=== PATIENT | male | born 1960 | race Caucasian/White ===

== ENCOUNTER 2017-06-20 17:58 | Emergency (ER) | payer MEDICARE ==
[2017-06-20 18:03] VITALS: BP 132/82
--- NOTE | 2017-06-20 18:44 | ED Physician Documentation ---
PD HPI UPPER EXT INJURY - Stated complaint Stated Complaint: GLF - HAND PX - Chief complaint Chief Complaint: Ext Problem - History obtained from History obtained from: Patient - History of Present Illness Location: Right, Finger (middle) Type of injury: Twist (his was falling and he tried to catch her, with a twisting of the middle finger. No other injury. Pain with ROM and slight swellig at PIP.) Where injury occurred: Other (beach) Timing - onset: Today Timing - details: Abrupt onset, Still present Improved by: Rest Worsened by: Moving, Palpating Associated symptoms: Swelling. No: Weakness, Numbness, Discolored Similar symptoms before: Has not had sx before Recently seen: Not recently seen Review of Systems Skin: denies: Abrasion (s), Laceration (s) Musculoskeletal: reports: Back pain (chronic), Joint pain (just in finger) Neurologic: denies: Generalized weakness, Focal weakness, Numbness PD PAST MEDICAL HISTORY - Past Medical History Past Medical History: Yes - Past Surgical History Past Surgical History: Yes General: Other - Allergies Allergies/Adverse Reactions: Allergies Allergy/AdvReac Type Severity Reaction Status Date / Time No Known Drug Allergies Allergy Verified 06/20/17 18:03 - Social History Does the pt smoke?: No Smoking Status: Never smoker Does the pt drink ETOH?: Yes Does the pt have substance abuse?: Yes Substance Use and Type: Marijuana PD ED PE NORMAL - Vitals Vital signs reviewed: Yes - General General: Alert and oriented X 3, Well developed/nourished, Other (appears in pain due to finger) - HEENT HEENT: Atraumatic - Neck Neck: Supple, no meningeal sign, No bony TTP, No adenopathy - Derm Derm: Normal color, Warm and dry - Extremities Extremities: Other (right middle finger with tenderness at PIP and MCP areas without deformity. Mild swelling. No bruising. Distal finger with normal sensation, movement and color/cap refill. ) - Neuro Neuro: Alert and oriented X 3, No motor deficit, No sensory deficit Results - Vitals Vitals: Oxygen O2 Source Room air - Rads (name of study) finger Radiology: Prelim report reviewed, EMP read contemporaneously (no fractures) PD MEDICAL DECISION MAKING - ED course Complexity details: reviewed results (no fractures; still hurts with ROM so will splint short term until better. ), considered differential, d/w patient Departure - Departure Disposition: 01 Home, Self Care Clinical Impression: Finger sprain Qualifiers: Encounter type: initial encounter Finger: middle finger Sprain of finger site: interphalangeal joint Laterality: right Qualified Code(s): S63.632A - Sprain of interphalangeal joint of right middle finger, initial encounter Condition: Stable Record reviewed to determine appropriate education?: Yes Instructions: ED Sprain Finger Follow-Up: Sandy Roper MD [Primary Care Provider] - Comments: Continue usual medications. Ibuprofen or naproxen if needed for pains. Use a finger splint if needed for comfort and progress use of the finger as able. Will likely be sore for a few days to week from the sprain. There are no fractures on x-ray. Discharge Date/Time: 06/20/17 20:16
--- NOTE | 2017-06-20 19:45 | XRAY Preliminary Report ---
Exam: XR FINGER(S) RT IMPRESSION: Normal digit radiography. [facility] SITE ID: [id number]
[2017-06-20] MEDS ORDERED: IBUPROFEN 600 MG TABLET PO STA (19:55)
--- NOTE | 2017-06-20 19:58 | XRAY Report ---
EXAM: RIGHT SECOND AND THIRD DIGIT RADIOGRAPHY EXAM DATE: 06/20/2017 07:16 PM. CLINICAL HISTORY: Fall and struck fingers of right hand. COMPARISON: None. TECHNIQUE: 3 views. FINDINGS: Bones: Normal. No fracture or bone lesion. Joints: Normal. No subluxations. Soft Tissues: Normal. No soft tissue swelling. IMPRESSION: Normal digit radiography. [facility] Referring Provider Line: [phone] SITE ID: [id number]
== END 2017-06-20 20:16 | disposition home or self-care (01) ==
LOC: ED 17:58
DX: S63.632A Sprain of interphalangeal joint of right middle finger, initial encounter (principal); X50.0XXA Overexertion from strenuous movement or load, initial encounter; Y92.832 Beach as the place of occurrence of the external cause
CPT/HCPCS: 73140; 99283; A9270

== ENCOUNTER 2017-07-09 15:05 | Outpatient (CLI) | payer MEDICARE | END 2017-07-09 15:06 | disposition home or self-care (01) | LOC: SC 15:05 | PROVIDERS: ATTEND Internal Medicine Pulmonary Disease | DX: G47.33 Obstructive sleep apnea (adult) (pediatric) (principal) | CPT/HCPCS: 99203; G0463; 99212 ==

== ENCOUNTER 2017-07-10 15:05 | Outpatient (CLI) | payer MEDICARE | END 2017-07-10 15:06 | disposition home or self-care (01) | LOC: LAB 15:05 | PROVIDERS: ATTEND Internal Medicine Rheumatology | DX: M45.9 Ankylosing spondylitis of unspecified sites in spine (principal); Z79.899 Other long term (current) drug therapy | CPT/HCPCS: 36415; 81599; 86480 ==

== ENCOUNTER 2017-08-20 09:58 | Outpatient (CLI) | payer MEDICARE ==
[2017-08-20 10:29] LABS: BASOPHILS % (AUTO) 0.5 %; EOSINOPHILS # (AUTO) 0.1 10^3/uL (0.0-0.7); EOSINOPHILS % (AUTO) 1.4 %; HGB - HEMOGLOBIN 14.4 g/dL (14.0-18.0); LYMPHOCYTES # (AUTO) 1.5 10^3/uL (1.5-3.5); LYMPHOCYTES % (AUTO) 25.6 %; MEAN CORPUSCULAR HGB CONC 33.7 g/dL (32.0-36.0); MEAN CORPUSCULAR VOLUME 89.2 fL (80.0-94.0); MEAN PLATELET VOLUME 6.9 fL (7.4-11.4); MONOCYTES # (AUTO) 0.6 10^3/uL (0.0-1.0); MONOCYTES % (AUTO) 9.8 %; NEUTROPHILS # (AUTO) 3.7 10^3/uL (1.5-6.6); NEUTROPHILS % (AUTO) 62.7 %; PLT - PLATELET COUNT 285 10^3/uL (130-450); RED BLOOD COUNT 4.79 10^6/uL (4.70-6.10); RED CELL DISTRIBUTION WIDTH 12.8 % (12.0-15.0); WHITE BLOOD COUNT 5.9 x10^3/uL (4.8-10.8)
[2017-08-20 10:54] LABS: ALBUMIN 4.5 g/dL (3.2-5.5); ALBUMIN/GLOBULIN RATIO 1.6 (1.0-2.2); ALKALINE PHOSPHATASE 47 IU/L (42-121); ALT ALANINE AMINOTRANSFERASE 18 IU/L (10-60); AST ASPARTATE AMINOTRANSFERASE 18 IU/L (10-42); BILIRUBIN,TOTAL 0.5 mg/dL (0.2-1.0); BUN - BLOOD UREA NITROGEN 14 mg/dL (6-20); CALCIUM 9.2 mg/dL (8.5-10.3); CARBON DIOXIDE - CO2 29 mmol/L (21-32); CHLORIDE 102 mmol/L (101-111); CHOLESTEROL 197 mg/dL; CREATININE 0.9 mg/dL (0.6-1.2); GFR - MDRD 86 (>89); GLUCOSE 98 mg/dL (70-100); HDL CHOLESTEROL 33 mg/dL; LDL CHOLESTEROL,CALCULATED 135 mg/dL; LDL/HDL RATIO 4.1 (<3.6); SODIUM 139 mmol/L (135-145); TOTAL PROTEIN 7.4 g/dL (6.7-8.2); VLDL CHOLESTEROL 29 mg/dL
[2017-08-20 10:59] LABS: THYROID STIMULATING HORMONE 2.11 uIU/mL (0.34-5.60)
[2017-08-20 11:05] LABS: FERRITIN 60.8 ng/mL (23.9-336.2)
[2017-08-21 13:53] LABS: HEPATITIS C ANTIBODY NON-REACTIVE (NON-REACTIVE)
== END 2017-08-20 09:59 | disposition home or self-care (01) ==
LOC: LAB 09:58
PROVIDERS: ATTEND Internal Medicine
DX: Z00.00 Encounter for general adult medical examination without abnormal findings (principal); G47.33 Obstructive sleep apnea (adult) (pediatric); M54.6 Pain in thoracic spine; M45.9 Ankylosing spondylitis of unspecified sites in spine; G25.81 Restless legs syndrome; F41.9 Anxiety disorder, unspecified; Z80.42 Family history of malignant neoplasm of prostate; Z13.6 Encounter for screening for cardiovascular disorders; Z12.5 Encounter for screening for malignant neoplasm of prostate; Z79.899 Other long term (current) drug therapy
CPT/HCPCS: 36415; 80053; 80061; 82728; 84443; 85025; 86803; G0103; 83721; 84153

== ENCOUNTER 2017-10-23 11:21 | Outpatient (CLI) | payer MEDICARE ==
--- NOTE | 2017-10-23 16:29 | XRAY Report ---
Procedure Date: 10/23/2017 Accession Number: [id number] / [id number] Procedure: XR - Clavicle LT CPT Code: FULL RESULT: EXAM: Clavicle LT DATE: 10/23/2017 12:10 PM CLINICAL HISTORY: PAIN TECHNIQUE: 2 views COMPARISON: None FINDINGS: Small amount of degenerative change at the left acromioclavicular joint. Minimal calcification at the insertion of the rotator cuff onto the greater tuberosity. The left clavicle is intact without evidence of fracture, bone destruction, periosteal reaction or other finding. IMPRESSION: Negative left clavicle. Degenerative change left shoulder.
== END 2017-10-23 11:22 | disposition home or self-care (01) ==
LOC: DI 11:21
PROVIDERS: ATTEND Internal Medicine
DX: M19.012 Primary osteoarthritis, left shoulder (principal)

== ENCOUNTER 2017-11-02 20:48 | Outpatient (CLI) | payer MEDICARE | END 2017-11-02 20:49 | disposition home or self-care (01) | LOC: SC 20:48 | PROVIDERS: ATTEND Internal Medicine Pulmonary Disease | DX: G47.61 Periodic limb movement disorder (principal) | CPT/HCPCS: 95810 ==

== ENCOUNTER 2017-12-03 15:06 | Outpatient (CLI) | payer MEDICARE | END 2017-12-03 15:07 | disposition home or self-care (01) | LOC: SC 15:06 | PROVIDERS: ATTEND Nurse Practitioner Family | DX: G47.00 Insomnia, unspecified (principal); G47.61 Periodic limb movement disorder | CPT/HCPCS: 99214; G0463; 99212 ==

== ENCOUNTER 2019-03-09 16:17 | Emergency (ER) | payer MEDICARE ==
[2019-03-09 16:24] VITALS: BP 165/89
--- NOTE | 2019-03-09 16:53 | ED Physician Documentation ---
PD HPI LOWER EXT INJURY - Stated complaint Stated Complaint: RT PINKY TOE PX - Chief complaint Chief Complaint: Ext Problem - History obtained from History obtained from: Patient, Family - History of Present Illness PD HPI LOW EXT INJURY LOCATION: Right, Toe (5th) Type of injury: Blunt / blow Where injury occurred: Home Timing - onset: Today Timing - duration: Minutes Timing - details: Abrupt onset, Still present Improved by: Rest, Ice, Immobilization Worsened by: Moving, Palpating Associated symptoms: Swelling. No: Weakness, Numbness Similar symptoms before: Has not had sx before Recently seen: Not recently seen - Additional information Additional information: 58-year-old male was chasing his dog and he ran toward a room that had a door open and he stubbed his toe on the inside portion of the door. He felt a snap when this happened and the toe was deformed laterally it now appears to be in correct position and is swollen. He is worried about a fracture. PD PAST MEDICAL HISTORY - Past Surgical History Past Surgical History: Yes General: Other - Present Medications Home Medications: Ambulatory Orders Medication Instructions Recorded Confirmed Baclofen 10 mg PO 03/09/19 Duloxetine HCl 30 03/09/19 HYDROcodone/ACET 10/325 [[place] 10 1 03/09/19 mg/325 mg] Naproxen 0 03/09/19 buPROPion [Wellbutrin Sr] 100 mg PO BID 03/09/19 03/09/19 - Allergies Allergies/Adverse Reactions: Allergies Allergy/AdvReac Type Severity Reaction Status Date / Time No Known Drug Allergies Allergy Verified 03/09/19 16:24 - Social History Does the pt smoke?: No Smoking Status: Never smoker Does the pt drink ETOH?: Yes Does the pt have substance abuse?: Yes Results - Vitals Vitals: Vital Signs - 24 hr 03/09/19 16:22 Temperature 37.2 C Heart Rate 76 Respiratory 22 Rate Blood Pressure 165/89 H O2 Saturation 97 Oxygen O2 Source Room air - Rads (name of study) toe R Radiology: Prelim report reviewed (Impression: Nondisplaced proximal shaft fracture of the 5th proximal phalnx.), EMP read indepedently, See rad report Departure - Departure Disposition: 01 Home, Self Care Clinical Impression: Toe fracture, right Qualifiers: Encounter type: initial encounter Toe: lesser toe Fracture type: closed Phalanx: proximal Fracture alignment: nondisplaced Qualified Code(s): S92.514A - Nondisplaced fracture of proximal phalanx of right lesser toe(s), initial encounter for closed fracture Condition: Stable Instructions: ED Fx Toe Closed Follow-Up: Sandy Roper MD [Primary Care Provider] -
--- NOTE | 2019-03-09 17:34 | XRAY Report ---
Reason: 5th toe jammed/pain Procedure Date: 03/09/2019 Accession Number: [id number] / [id number] Procedure: XR - Toe(s) RT CPT Code: Final Report FULL RESULT: EXAM: RIGHT TOE RADIOGRAPHY EXAM DATE: 03/09/2019 04:59 PM. CLINICAL HISTORY: 5th toe jammed. Pain. COMPARISON: None. TECHNIQUE: 3 views. FINDINGS: Bones: Nondisplaced proximal shaft fracture of the fifth proximal phalanx. No other traumatic or destructive bone abnormalities. Joints: Normal. No subluxations. Soft Tissues: Associated soft tissue swelling. IMPRESSION: Nondisplaced proximal shaft fracture of the fifth proximal phalanx. [facility]
== END 2019-03-09 17:44 | disposition home or self-care (01) ==
LOC: ED 16:17
DX: S92.514A Nondisplaced fracture of proximal phalanx of right lesser toe(s), initial encounter for closed fracture (principal); W22.09XA Striking against other stationary object, initial encounter; Y93.02 Activity, running; Y92.009 Unspecified place in unspecified non-institutional (private) residence as the place of occurrence of the external cause
CPT/HCPCS: 73660; 99281; 99283

== ENCOUNTER 2019-12-03 08:20 | Outpatient (CLI) | payer MEDICARE | END 2019-12-03 08:21 | disposition home or self-care (01) | LOC: COV 08:20 | PROVIDERS: ATTEND Family Medicine | DX: R05 Cough (principal); M79.10 Myalgia, unspecified site; R53.83 Other fatigue; R68.83 Chills (without fever); R09.81 Nasal congestion; Z20.828 Contact with and (suspected) exposure to other viral communicable diseases ==

== ENCOUNTER 2020-04-22 17:17 | Outpatient (CLI) | payer MEDICARE, MEDICAID | END 2020-04-22 17:18 | disposition home or self-care (01) | LOC: COV 17:17 | PROVIDERS: ATTEND Family Medicine | DX: R05 Cough (principal); Z20.828 Contact with and (suspected) exposure to other viral communicable diseases; R06.02 Shortness of breath; R53.83 Other fatigue; R68.83 Chills (without fever); J02.9 Acute pharyngitis, unspecified; R09.81 Nasal congestion ==

== ENCOUNTER 2020-05-15 03:59 | Outpatient (CLI) | payer MEDICARE, MEDICAID ==
--- OUTSIDE RECORDS SUMMARY | 2020-05-19 01:51 | EXTERNAL MEDICAL SUMMARY RPT | Continuity of Care Document ---
:1960 Demographics Phone Unavailable Preferred Language Unknown Marital Status Unknown Alevism Affiliation Unknown Race Unknown Ethnic Group Unknown Author Organization [place] Address [address] [place] [address] Phone Care Team Providers Name Role Phone Dannhauer Unavailable Unavailable Problems date description facility 2017-06-20 17:58 SPRAIN OF INTERPHALANGEAL JOINT OF i [facility] RIGHT MIDDLE FINGER, INIT 2017-06-20 17:58 UNSP INJURY OF RIGHT WRIST, HAND [facility] AND FINGER(S), INIT ENCNTR 2017-06-20 17:58 OVEREXERTION FROM STRENUOUS [facility] MOVEMENT OR LOAD, INIT 2017-06-20 17:[address] OF OCCURRENCE [facility] OF THE EXTERNAL CAUSE 2017-07-09 15:05 OBSTRUCTIVE SLEEP APNEA (ADULT) [facility] (PEDIATRIC) 2017-07-10 15:[address] 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 SHOULDER 2017-11-02 20:48 PERIODIC LIMB MOVEMENT DISORDER [facility] 2017-12-03 15:06 INSOMNIA, UNSPECIFIED [facility] dical Center 2017-12-03 15:06 PERIODIC LIMB MOVEMENT DISORDER [facility] 2019-03-09 16:17 PAIN IN RIGHT TOE(S) [facility] ical [place] 2019-03-09 16:17 NONDISP FX OF PROXIMAL PHALANX OF [facility] RIGHT LESSER TOE(S), INIT 2019-03-09 16:17 STRIKING AGAINST OTHER STATIONARY [facility] OBJECT, INITIAL ENCOUNTER 2019-03-09 16:[address] IN UNSP NON-[facility] (PRIVATE) RESIDENCE PLACE 2019-03-09 16:17 ACTIVITY, RUNNING [facility] Medic [facility] 2019-12-03 08:20 MYALGIA, UNSPECIFIED SITE [facility] 2019-12-03 08:20 COUGH [facility] Medic [facility] 2019-12-03 08:20 NASAL CONGESTION [facility] 2019-12-03 08:20 OTHER FATIGUE [facility] Medic [facility] 2019-12-03 08:20 CHILLS (WITHOUT FEVER) [facility] edical [place] 2019-12-03 08:20 CONTACT W AND EXPOSURE TO OTH [facility] VIRAL COMMUNICABLE DISEASES 2019-12-13 13:22 ANXIETY DISORDER, UNSPECIFIED [facility] 2019-12-13 13:22 OBSTRUCTIVE SLEEP APNEA (ADULT) [facility] (PEDIATRIC) 2019-12-13 13:22 RHEUMATOID ARTHRITIS, UNSPECIFIED [facility] 2019-12-13 13:22 OTHER SPONDYLOSIS, THORACIC REGION i [facility] 2019-12-13 13:22 EPIGASTRIC PAIN [facility] Medic [facility] 2019-12-13 13:22 NAUSEA [facility] 2019-12-13 13:22 ANESTHESIA OF SKIN [facility] Medic al Center 2019-12-13 13:22 OTHER PROBLEMS RELATED TO [facility] LIFESTYLE 2019-12-13 13:22 MAJOR DEPRESSIVE DISORDER, SINGLE [facility] EPISODE, UNSPECIFIED 2019-12-13 13:22 OTHER CHRONIC PAIN [facility] Medic al Center 2019-12-13 13:22 ULCER OF [facility]HAGUS [facility] BLE[facility] 2019-12-13 13:22 CONSTIPATION, UNSPECIFIED [facility] 2019-12-13 13:22 ANKYLOSING SPONDYLITIS LUMBAR [facility] REGION 2019-12-13 13:22 ADVERSE EFFECT OF NONSTEROIDAL [facility] ANTI-INFLAMMATORY DRUGS, INIT 2019-12-13 13:[address] [facility] NON-[facility] (PRIVATE) RESIDENCE PLACE 2019-12-13 13:22 FPC (CURRENT) USE OF OPIATE [facility] ANALGESIC 2019-12-13 13:22 OTHER FPC (CURRENT) DRUG [facility] THERAPY 2019-12-13 13:22 BARIATRIC SURGERY STATUS [facility] 2020-04-22 17:17 ACUTE PHARYNGITIS, UNSPECIFIED [facility] 2020-04-22 17:17 COUGH [facility] Medic al [place] 2020-04-22 17:17 SHORTNESS OF BREATH [facility] cristian [place] 2020-04-22 17:17 NASAL CONGESTION [facility] Medic al [place] 2020-04-22 17:17 OTHER FATIGUE [facility] Medic al [place] 2020-04-22 17:17 CHILLS (WITHOUT FEVER) [facility] edical [place] 2020-04-22 17:17 CONTACT W AND EXPOSURE TO OTH [facility] VIRAL COMMUNICABLE DISEASES Allergies date description facility [facility]FEN [facility]ALEXIN [facility] [place] CLINDAMYCIN HCL [facility] CODEINE SULFATE [facility] FRUCTOSE [facility] POVIDONE IODINE [facility] WARFARIN [facility] [place] NITROFURAN DERIVATIVES [facility] PENICILLINS [facility]INS [facility] SULFA (SULFONAMIDE ANTIBIOTICS) [facility] NO KNOWN ALLERGIES [facility] LATEX [facility] TRAMADOL [facility] ENOXAPARIN [facility] LISINOPRIL [facility] BACITRACIN-POLYMYXIN B [facility] edical Center [id number] [facility] ADHESIVE TAPE-SILICONES [facility] No Known Drug Allergies [facility] AMLODIPINE BESYLATE [facility] ATORVASTATIN [facility] CODEINE [facility] DULOXETINE [facility] ERYTHROMYCIN [facility] ESCITALOPRAM [facility] LISINOPRIL [facility] LORATADINE [facility] MORPHINE [facility] OXYCODONE [facility] PENTAZOCINE [facility] PREDNISONE [facility] SIMVASTATIN [facility] TRAMADOL [facility] ESCITALOPRAM OXALATE [facility] LIPITOR [facility] PENTAZOCINE LACTATE [facility] BETA ADRENERGIC BLOCKERS [facility] NSAIDS [facility] PENICILLINS [facility] STATINS [facility] cycline drugs [facility] BACLOFEN [facility] FLUOXETINE [facility] LISINOPRIL [facility] MAPROTILINE [facility] MERCURY (BULK) [facility] METOPROLOL [facility] PHENYLMERCURIC NITRATE [facility] M edical Center ROSUVASTATIN CALCIUM [facility] [id number] REDUCTASE INHIBITORS [facility] VARENICLINE [facility] NO KNOWN ALLERGIES [facility] Medic al Center NO ALLERGY INFORMATION AVAILABLE [facility] NSAIDS (NON-STEROIDAL ANTI-INFLAMMATORY DRUG) [facility] SULFA (SULFONAMIDE ANTIBIOTICS) [facility] NO KNOWN ALLERGIES [facility] Medic al [place] BRASSICA OLERACEA [facility] Medic al [place] TRAMADOL [facility] Medic al [place] ENOXAPARIN [facility] Medic al [place] LISINOPRIL [facility] Medic al [place] BACITRACIN-POLYMYXIN B [facility] [id number] [facility] ADHESIVE TAPE-SILICONES [facility] Darvon [facility] Medic al [place] penicillin [facility] Medic [facility] No Known Drug Allergies [facility] Procedures date description facility 2019-12-13 13:22 EXCISION OF ESOPHAGOGASTRIC [facility] JUNCTION, ENDO, DIAGN date description facility 2019-12-13 13:22 REVISION OF EXTRALUMINAL DEVICE IN [facility] STOMACH, PERC APPROACH Results Social History date description facility [id number]
== END 2020-05-15 04:00 | disposition critical access hospital (66) ==
LOC: EMS 03:59
PROVIDERS: ATTEND Surgery
DX: M62.830 Muscle spasm of back (principal); R41.82 Altered mental status, unspecified
CPT/HCPCS: A0425; A0429

== ENCOUNTER 2020-05-15 04:13 | Emergency (ER) | payer MEDICARE, MEDICAID ==
[2020-05-15] MEDS ORDERED: HYDROcod/ACETAM 10 MG/325 MG TABLET PO STA (04:59)
--- NOTE | 2020-05-15 04:59 | ED Physician Documentation ---
History of Present Illness - Stated complaint Stated Complaint: GLF, RESTLESS LEG SYNDROME - Chief complaint Chief Complaint: Trauma Ch/Bk - History obtained from History obtained from: Family (Mary ()) - Additonal information Additional information: Unable to obtain history from patient 2/2 his distraction and apparent inability to focus. He was only able to tell me that he is in pain and that he ran out of his medications, exclaiming, "Please help me". d/w Mary - Patient has depression, anxiety, arthritis, RLS/chronic pain syndrome, and has had a transition in health insurance in February, causing a lapse in care. patient has been rationing pain meds and supplementing with marijuana. Per her report he never had a gambling history but has taken that up recently. Hasn't slept for three days and hasn't seemed to be able to keep still. His legs are constantly jerking, and it is getting worse. His states his doctors think it is possibly RLS, but also possibly related to nerve damage to spine. Appointment was undertaken with their new primary [facility] this past week and scripts were sent to arrive on sunday (buprenorphine 2mg SL, norco 10/325). Last opiate script: PCP Dr. Luis Alberto Simmons prescribed buprenorphine 2mg SL X 30 on Mar. Review of Systems Unable to obtain: Uncooperative PD PAST MEDICAL HISTORY - Past Medical History Past Medical History: Yes Respiratory: None, CPAP use Neuro: None Endocrine/Autoimmune: None GI: Other : None HEENT: None Psych: Depression, Anxiety Musculoskeletal: Osteoarthritis, Rheumatoid arthritis, Chronic back pain Derm: None - Past Surgical History Past Surgical History: Yes General: Other HEENT: Tonsil/Adenoidectomy, Other - Present Medications Home Medications: Ambulatory Orders Medication Instructions Recorded Confirmed Baclofen 30 mg PO BID 03/09/19 05/15/20 HYDROcodone/ACET 10/325 [[place] 10 1 tab PO Q4H PRN 03/09/19 05/15/20 mg/325 mg] Escitalopram [Lexapro] 30 mg PO DAILY 12/12/19 05/15/20 buprenorphine HCL [Buprenorphine 2 mg PO QPM 12/13/19 05/15/20 HCl] hydrOXYzine pamoate [Hydroxyzine 50 mg PO TID PRN 12/13/19 05/15/20 Pamoate] lamoTRIgine [LaMICtal] 100 mg PO QPM 12/13/19 05/15/20 sulfaSALAzine [Sulfasalazine Dr] 1,000 mg PO BID 12/13/19 05/15/20 Pantoprazole [Protonix] 40 mg PO BID #60 tablet 12/15/19 05/15/20 - Allergies Allergies/Adverse Reactions: Allergies Allergy/AdvReac Type Severity Reaction Status Date / Time No Known Drug Allergies Allergy Verified 05/15/20 04:18 - Social History Does the pt smoke?: No Smoking Status: Never smoker Does the pt drink ETOH?: Yes Does the pt have substance abuse?: Yes - Immunizations Immunizations are current?: Yes - POLST Patient has POLST: No PD ED PE NORMAL - Vitals Vital signs reviewed: Yes - General General: Other (Writhing in bed, in apparent discomfort, with difficulty focusing. intermittently uttering curses/exclamations) - HEENT HEENT: Atraumatic, PERRL, EOMI, Moist mucous membranes - Neck Neck: Supple, no meningeal sign - Cardiac Cardiac: RRR - Respiratory Respiratory: No respiratory distress, Clear bilaterally - Abdomen Abdomen: Non tender, Non distended - Male Male : Deferred - Rectal Rectal: Deferred - Back Back: No spinal TTP - Derm Derm: Normal color - Extremities Extremities: No deformity - Neuro Neuro: Other (profound psychomotor agitation. ) Eye Opening: Spontaneous Motor: Obeys Commands Verbal: Confused GCS Score: 14 - Psych Psych: Other (distressed appearing, with significant psychomotor agitation) Results - Vitals Vitals: Vital Signs - 24 hr 05/15/20 05/15/20 05/15/20 04:18 04:22 06:22 Temperature 36.5 C 36.5 C 36.5 C Heart Rate 81 81 80 Respiratory 18 18 18 Rate Blood Pressure 184/115 H 160/86 H 150/80 H O2 Saturation 97 100 100 Oxygen O2 Source Room air - Labs Labs: Laboratory Tests 05/15/20 05/15/20 05/15/20 04:32 04:32 04:32 WBC 8.9 RBC 5.14 Hgb 14.9 Hct 45.6 MCV 88.7 MCH 29.0 MCHC 32.7 RDW 12.9 Plt Count 296 MPV 9.5 Neut # (Auto) 6.5 Lymph # (Auto) 1.6 [place] # (Auto) 0.6 Eos # (Auto) 0.1 Baso # (Auto) 0.0 Absolute Nucleated RBC 0.00 Nucleated RBC % 0.0 Sodium 139 Potassium 4.1 Chloride 101 Carbon Dioxide 23 Anion Gap 15.0 H BUN 18 Creatinine 0.9 Estimated GFR (MDRD) 86 L Glucose 95 Calcium 9.8 Total Bilirubin 0.7 AST 20 ALT 13 Alkaline Phosphatase 67 Total Protein 8.1 Albumin 5.1 Globulin 3.0 Albumin/Globulin Ratio 1.7 Lipase 22 TSH 0.93 Urine Color Urine Clarity Urine pH Ur Specific [place] Urine Protein Urine Glucose (UA) Urine Ketones Urine Occult Blood Urine Nitrite Urine Bilirubin Urine Urobilinogen Ur Leukocyte Esterase Ur Microscopic Review Urine Culture Comments Salicylates < 6.0 Urine Opiates Screen Ur Oxycodone Screen Urine Methadone Screen Ur Propoxyphene Screen Acetaminophen < 10 L Ur Barbiturates Screen Ur Tricyclics Screen Ur Phencyclidine Scrn Ur Amphetamine Screen U Methamphetamines Scrn U Benzodiazepines Scrn Urine Cocaine Screen U Cannabinoids Screen Ethyl Alcohol < 5.0 05/15/20 06:00 WBC RBC Hgb Hct MCV MCH MCHC RDW Plt Count MPV Neut # (Auto) Lymph # (Auto) [place] # (Auto) Eos # (Auto) Baso # (Auto) Absolute Nucleated RBC Nucleated RBC % Sodium Potassium Chloride Carbon Dioxide Anion Gap BUN Creatinine Estimated GFR (MDRD) Glucose Calcium Total Bilirubin AST ALT Alkaline Phosphatase Total Protein Albumin Globulin Albumin/Globulin Ratio Lipase TSH Urine Color YELLOW Urine Clarity CLEAR Urine pH 6.0 Ur Specific [place] 1.010 Urine Protein NEGATIVE Urine Glucose (UA) NEGATIVE Urine Ketones TRACE Urine Occult Blood NEGATIVE Urine Nitrite NEGATIVE Urine Bilirubin NEGATIVE Urine Urobilinogen 0.2 (NORMAL) Ur Leukocyte Esterase NEGATIVE Ur Microscopic Review NOT INDICATED Urine Culture Comments NOT INDICATED Salicylates Urine Opiates Screen POSITIVE H Ur Oxycodone Screen NEGATIVE Urine Methadone Screen NEGATIVE Ur Propoxyphene Screen NEGATIVE Acetaminophen Ur Barbiturates Screen NEGATIVE Ur Tricyclics Screen NEGATIVE Ur Phencyclidine Scrn NEGATIVE Ur Amphetamine Screen NEGATIVE U Methamphetamines Scrn NEGATIVE U Benzodiazepines Scrn NEGATIVE Urine Cocaine Screen NEGATIVE U Cannabinoids Screen POSITIVE H Ethyl Alcohol PD MEDICAL DECISION MAKING - ED course ED course: 6am - the patient has calmed a little bit with administration of norco, valium, pramipexole but is still displaying significant psychomotor agitation. CT head unremarkable. will obtain labwork to evaluate for medical cause. Given his 's history of recent new onset gambling habit, insomnia, in the context of depression history and recent lapse in medications, it is possible he is experiencing an acute manic episode versus withdrawal from his opiate pain medication. 6:30am- patient lying facedown in bed, appears to be sleeping. opens eyes to verbal then closes them again. intermittent full body twitching ongoing but improved. 7am - care turned over to Dr. Hernandez. patient to be evaluated by telepsych given his persistent agitation and recent manic symptoms (insomnia, gambling behaviors). Departure - Departure Clinical Impression: Psychomotor agitation
[2020-05-15] MEDS ORDERED: diazePAM 5 MG TABLET PO STA (05:00)
[2020-05-15] MEDS ORDERED: CABERGOLINE 0.5 MG TABLET PO ONE (05:04)
[2020-05-15] MEDS ORDERED: PRAMIPEXOLE 0.25 MG TABLET PO STA (05:05)
[2020-05-15 06:10] LABS: MUDS CUTOFF CONCENTRATIONS CUTOFF CONC BELOW:
[2020-05-15 06:10] LABS: BASOPHILS % (AUTO) 0.3 %; EOSINOPHILS # (AUTO) 0.1 10^3/uL (0.0-0.7); EOSINOPHILS % (AUTO) 1.1 %; HGB - HEMOGLOBIN 14.9 g/dL (14.0-18.0); LYMPHOCYTES # (AUTO) 1.6 10^3/uL (1.5-3.5); LYMPHOCYTES % (AUTO) 17.8 %; MEAN CORPUSCULAR HGB CONC 32.7 g/dL (32.0-36.0); MEAN CORPUSCULAR VOLUME 88.7 fL (80.0-94.0); MEAN PLATELET VOLUME 9.5 fL (7.4-11.4); MONOCYTES # (AUTO) 0.6 10^3/uL (0.0-1.0); MONOCYTES % (AUTO) 7.2 %; NEUTROPHILS # (AUTO) 6.5 10^3/uL (1.5-6.6); NEUTROPHILS % (AUTO) 73.1 %; PLT - PLATELET COUNT 296 10^3/uL (130-450); RED BLOOD COUNT 5.14 10^6/uL (4.70-6.10); RED CELL DISTRIBUTION WIDTH 12.9 % (12.0-15.0); WHITE BLOOD COUNT 8.9 x10^3/uL (4.8-10.8)
[2020-05-15 06:11] LABS: BILIRUBIN,URINE NEGATIVE (NEGATIVE); GLUCOSE, URINE (UA) NEGATIVE (NEGATIVE); KETONES,URINE (UA) TRACE mg/dL (NEGATIVE); LEUKOCYTE ESTERASE, URINE NEGATIVE (NEGATIVE); NITRITE,URINE NEGATIVE (NEGATIVE); OCCULT BLOOD,URINE NEGATIVE (NEGATIVE); PROTEIN,URINE NEGATIVE (NEGATIVE); UROBILINOGEN,URINE 0.2 (NORMAL) E.U./dL (NORMAL)
[2020-05-15 06:14] LABS: CLARITY,URINE CLEAR (CLEAR)
[2020-05-15 06:21] LABS: COCAINE SCREEN URINE NEGATIVE (NEGATIVE); METHAMPHETAMINES SCREEN, URINE NEGATIVE (NEGATIVE); OPIATE SCREEN, URINE POSITIVE (NEGATIVE)
[2020-05-15 06:22] LABS: AMPHETAMINE SCREEN,URINE NEGATIVE (NEGATIVE); BENZODIAZEPINES SCREEN, URINE NEGATIVE (NEGATIVE); METHADONE SCREEN, URINE NEGATIVE (NEGATIVE); OXYCODONE SCREEN, URINE NEGATIVE (NEGATIVE); PROPOXYPHENE SCREEN, URINE NEGATIVE (NEGATIVE); TRICYCLIC ANTIDEPRESSANT,URINE NEGATIVE (NEGATIVE)
[2020-05-15 06:23] LABS: ACETAMINOPHEN < 10 ug/mL (10-30); ALBUMIN 5.1 g/dL (3.2-5.5); ALBUMIN/GLOBULIN RATIO 1.7 (1.0-2.2); ALKALINE PHOSPHATASE 67 IU/L (42-121); ALT ALANINE AMINOTRANSFERASE 13 IU/L (10-60); AST ASPARTATE AMINOTRANSFERASE 20 IU/L (10-42); BILIRUBIN,TOTAL 0.7 mg/dL (0.2-1.0); BUN - BLOOD UREA NITROGEN 18 mg/dL (6-20); CALCIUM 9.8 mg/dL (8.5-10.3); CARBON DIOXIDE - CO2 23 mmol/L (21-32); CHLORIDE 101 mmol/L (101-111); CREATININE 0.9 mg/dL (0.6-1.2); GLUCOSE 95 mg/dL (70-100); LIPASE 22 U/L (22-51); SALICYLATE < 6.0 mg/dL; SODIUM 139 mmol/L (135-145); TOTAL PROTEIN 8.1 g/dL (6.7-8.2)
--- NOTE | 2020-05-15 08:33 | CT Report ---
PROCEDURE: HEAD WO INDICATIONS: fall from standing, agitation TECHNIQUE: Noncontrast 4.5 mm thick angled axial sections acquired from the foramen magnum to the vertex. For r adiation dose reduction, the following was used: automated exposure control, adjustment of mA and/or kV according to patient size. COMPARISON: None. FINDINGS: Image quality: Excellent. CSF spaces: Basal cisterns are patent. No extra-axial fluid collections. Ventricles are normal in size and shape. Brain: No midline shift. No intracranial masses or hemorrhage. Hernandez-white matter interface is norm al. Skull and face: Calvarium and visualized facial bones are intact, without suspicious lesions. Sinuses: Minimal mucosal thickening in the right maxillary sinus. Visualized sinuses and mastoids ar e otherwise clear. IMPRESSION: No acute intracranial abnormality. This report is concordant with the overnight preliminary interpretation. Reviewed by: Cuong Marlow MD on 05/15/2020 7:31 AM [facility] Approved by: Cuong Marlow MD on 05/15/2020 7:31 AM [facility] Station ID: [id number]
[2020-05-15] MEDS: HYDROcod/ACETAM 5/325 MG TABLET PO STA ×2 (09:29→10:05)
[2020-05-15 10:54] LABS: C. PNEUMONIAE- RESP PCR PANEL NOT DETECTED
--- NOTE | 2020-05-15 11:28 | ED Physician Documentation ---
History of Present Illness - Stated complaint Stated Complaint: GLF, RESTLESS LEG SYNDROME - Chief complaint Chief Complaint: Trauma Ch/Bk PD PAST MEDICAL HISTORY - Past Medical History Past Medical History: Yes Respiratory: None, CPAP use Neuro: None Endocrine/Autoimmune: None GI: Other : None HEENT: None Psych: Depression, Anxiety Musculoskeletal: Osteoarthritis, Rheumatoid arthritis, Chronic back pain Derm: None - Past Surgical History Past Surgical History: Yes General: Other HEENT: Tonsil/Adenoidectomy, Other - Present Medications Home Medications: Ambulatory Orders Medication Instructions Recorded Confirmed Baclofen 30 mg PO BID 03/09/19 05/15/20 HYDROcodone/ACET 10/325 [[place] 10 1 tab PO Q4H PRN 03/09/19 05/15/20 mg/325 mg] Escitalopram [Lexapro] 30 mg PO DAILY 12/12/19 05/15/20 buprenorphine HCL [Buprenorphine 2 mg PO QPM 12/13/19 05/15/20 HCl] hydrOXYzine pamoate [Hydroxyzine 50 mg PO TID PRN 12/13/19 05/15/20 Pamoate] lamoTRIgine [LaMICtal] 100 mg PO QPM 12/13/19 05/15/20 sulfaSALAzine [Sulfasalazine Dr] 1,000 mg PO BID 12/13/19 05/15/20 Pantoprazole [Protonix] 40 mg PO BID #60 tablet 12/15/19 05/15/20 - Allergies Allergies/Adverse Reactions: Allergies Allergy/AdvReac Type Severity Reaction Status Date / Time No Known Drug Allergies Allergy Verified 05/15/20 04:18 - Social History Does the pt smoke?: No Smoking Status: Never smoker Does the pt drink ETOH?: Yes Does the pt have substance abuse?: Yes - Immunizations Immunizations are current?: Yes - POLST Patient has POLST: No Results - Vitals Vitals: Vital Signs - 24 hr 05/15/20 05/15/20 05/15/20 04:18 04:22 06:22 Temperature 36.5 C 36.5 C 36.5 C Heart Rate 81 81 80 Respiratory 18 18 18 Rate Blood Pressure 184/115 H 160/86 H 150/80 H O2 Saturation 97 100 100 05/15/20 07:45 Temperature Heart Rate 78 Respiratory 17 Rate Blood Pressure 111/75 O2 Saturation 100 Oxygen O2 Source Room air - Labs Labs: Laboratory Tests 05/15/20 05/15/20 05/15/20 04:32 04:32 04:32 WBC 8.9 RBC 5.14 Hgb 14.9 Hct 45.6 MCV 88.7 MCH 29.0 MCHC 32.7 RDW 12.9 Plt Count 296 MPV 9.5 Neut # (Auto) 6.5 Lymph # (Auto) 1.6 [place] # (Auto) 0.6 Eos # (Auto) 0.1 Baso # (Auto) 0.0 Absolute Nucleated RBC 0.00 Nucleated RBC % 0.0 Sodium 139 Potassium 4.1 Chloride 101 Carbon Dioxide 23 Anion Gap 15.0 H BUN 18 Creatinine 0.9 Estimated GFR (MDRD) 86 L Glucose 95 Calcium 9.8 Total Bilirubin 0.7 AST 20 ALT 13 Alkaline Phosphatase 67 Total Protein 8.1 Albumin 5.1 Globulin 3.0 Albumin/Globulin Ratio 1.7 Lipase 22 TSH 0.93 Urine Color Urine Clarity Urine pH Ur Specific [place] Urine Protein Urine Glucose (UA) Urine Ketones Urine Occult Blood Urine Nitrite Urine Bilirubin Urine Urobilinogen Ur Leukocyte Esterase Ur Microscopic Review Urine Culture Comments Nasal Adenovirus (PCR) Nasal B. parapertussis DNA (PCR) Nasal Coronavir 229E PCR Nasal Coronavir HKU1 PCR Nasal Coronavir NL63 PCR Nasal Coronavir OC43 PCR Nasal Enterovir/Rhinovir PCR Nasal Influenza B PCR Nasal Influenza A PCR Nasal Parainfluen 1 PCR Nasal Parainfluen 2 PCR Nasal Parainfluen 3 PCR Nasal Parainfluen 4 PCR Nasal RSV (PCR) Nasal B.pertussis DNA PCR Nasal C.pneumoniae (PCR) [place] Human Metapneumo PCR Nasal M.pneumoniae (PCR) Nasal SARS-CoV-2 (PCR) Salicylates < 6.0 Urine Opiates Screen Ur Oxycodone Screen Urine Methadone Screen Ur Propoxyphene Screen Acetaminophen < 10 L Ur Barbiturates Screen Ur Tricyclics Screen Ur Phencyclidine Scrn Ur Amphetamine Screen U Methamphetamines Scrn U Benzodiazepines Scrn Urine Cocaine Screen U Cannabinoids Screen Ethyl Alcohol < 5.0 05/15/20 05/15/20 06:00 09:45 WBC RBC Hgb Hct MCV MCH MCHC RDW Plt Count MPV Neut # (Auto) Lymph # (Auto) [place] # (Auto) Eos # (Auto) Baso # (Auto) Absolute Nucleated RBC Nucleated RBC % Sodium Potassium Chloride Carbon Dioxide Anion Gap BUN Creatinine Estimated GFR (MDRD) Glucose Calcium Total Bilirubin AST ALT Alkaline Phosphatase Total Protein Albumin Globulin Albumin/Globulin Ratio Lipase TSH Urine Color YELLOW Urine Clarity CLEAR Urine pH 6.0 Ur Specific [place] 1.010 Urine Protein NEGATIVE Urine Glucose (UA) NEGATIVE Urine Ketones TRACE Urine Occult Blood NEGATIVE Urine Nitrite NEGATIVE Urine Bilirubin NEGATIVE Urine Urobilinogen 0.2 (NORMAL) Ur Leukocyte Esterase NEGATIVE Ur Microscopic Review NOT INDICATED Urine Culture Comments NOT INDICATED Nasal Adenovirus (PCR) NOT DETECTED Nasal B. parapertussis DNA (PCR) NOT DETECTED Nasal Coronavir 229E PCR NOT DETECTED Nasal Coronavir HKU1 PCR NOT DETECTED Nasal Coronavir NL63 PCR NOT DETECTED Nasal Coronavir OC43 PCR NOT DETECTED Nasal Enterovir/Rhinovir PCR DETECTED A Nasal Influenza B PCR NOT DETECTED Nasal Influenza A PCR NOT DETECTED Nasal Parainfluen 1 PCR NOT DETECTED Nasal Parainfluen 2 PCR NOT DETECTED Nasal Parainfluen 3 PCR NOT DETECTED Nasal Parainfluen 4 PCR NOT DETECTED Nasal RSV (PCR) NOT DETECTED Nasal B.pertussis DNA PCR NOT DETECTED Nasal C.pneumoniae (PCR) NOT DETECTED [place] Human Metapneumo PCR NOT DETECTED Nasal M.pneumoniae (PCR) NOT DETECTED Nasal SARS-CoV-2 (PCR) NOT DETECTED Salicylates Urine Opiates Screen POSITIVE H Ur Oxycodone Screen NEGATIVE Urine Methadone Screen NEGATIVE Ur Propoxyphene Screen NEGATIVE Acetaminophen Ur Barbiturates Screen NEGATIVE Ur Tricyclics Screen NEGATIVE Ur Phencyclidine Scrn NEGATIVE Ur Amphetamine Screen NEGATIVE U Methamphetamines Scrn NEGATIVE U Benzodiazepines Scrn NEGATIVE Urine Cocaine Screen NEGATIVE U Cannabinoids Screen POSITIVE H Ethyl Alcohol PD MEDICAL DECISION MAKING - ED course Complexity details: reviewed old records, reviewed results, re-evaluated patient, considered differential, d/w patient ED course: 60-year-old male chronically on opiate both Robins and buprenorphine has lost his prescriber temporarily and he has rationed his Robins and has now developed a lot of akathisia and this appears to be related to narcotic withdrawal. He is using both the Robins and the buprenorphine simultaneously and has had a marked decrease in his Robins. Today he presented with altered level of consciousness and akathisia. This was somewhat improved by the use of some Robins early this morning and this is now worn off. The patient has talked to cas Lock our telepsych community resource consultant and Dr. Tristen Schaefer has prescribed an increased dose of Suboxone wanting the patient to titrate up to 16 to 24 mg. He states that he should get relief of his symptoms with initial doses of 8 mg and he warned to completely avoid forever the Robins. He has requested that we give resources to get to a Suboxone clinic urgently. The patient has been subprescribed 14 8 mg Suboxone tablets. Departure - Departure Disposition: 01 Home, Self Care Clinical Impression: Psychomotor agitation, Acute narcotic withdrawal with complication Condition: Stable Instructions: Buprenorphine Naloxone Sublingual Tablet Follow-Up: Sandy Roper MD [Primary Care Provider] - Comments: Today Dr. Sun has prescribed Suboxone for you to take 8 mg/day and you should have some improvement with this today. Take a second dose today if you do not have adequate improvement. Do not take any more Robins. Follow-up with the Suboxone clinic as outlined. The prescription is at the [facility] pharmacy in [place].
[2020-05-15 11:36] VITALS: BP 134/74
--- OUTSIDE RECORDS SUMMARY | 2020-05-19 01:49 | EXTERNAL MEDICAL SUMMARY RPT | Continuity of Care Document ---
:1960 Demographics Phone Unavailable Preferred Language Unknown Marital Status Unknown Buddhism Affiliation Unknown Race Unknown Ethnic Group Unknown Author Organization [place] Address [address] [place] [address] Phone Care Team Providers Name Role Phone Dannhauer Unavailable Unavailable Problems date description facility 2017-06-20 17:58 SPRAIN OF INTERPHALANGEAL JOINT OF i [facility] RIGHT MIDDLE FINGER, INIT 2017-06-20 17:58 UNSP INJURY OF RIGHT WRIST, HAND [facility] AND FINGER(S), INIT ENCNTR 2017-06-20 17:58 OVEREXERTION FROM STRENUOUS [facility] MOVEMENT OR LOAD, INIT 2017-06-20 17:[address] OF OCCURRENCE [facility] OF THE EXTERNAL CAUSE 2017-07-09 15:05 OBSTRUCTIVE SLEEP APNEA (ADULT) [facility] (PEDIATRIC) 2017-07-10 15:05 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 2017-07-10 15:05 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 [facility]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 2017-08-20 09:58 ANXIETY DISORDER, UNSPECIFIED [facility] 2017-08-20 09:58 RESTLESS LEGS SYNDROME [facility] 2017-08-20 09:58 OBSTRUCTIVE SLEEP APNEA (ADULT) [facility] (PEDIATRIC) 2017-08-20 09:58 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 2017-08-20 09:58 PAIN IN THORACIC SPINE [facility] 2017-08-20 09:58 ENCNTR FOR GENERAL ADULT MEDICAL [facility] EXAM W/O ABNORMAL FINDINGS 2017-08-20 09:58 ENCOUNTER FOR SCREENING FOR [facility] MALIGNANT NEOPLASM OF PROSTATE 2017-08-20 09:58 ENCOUNTER FOR SCREENING FOR [facility] CARDIOVASCULAR DISORDERS 2017-08-20 09:58 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 RIGHT LESSER TOE(S), INIT 2019-03-09 16:17 STRIKING AGAINST OTHER STATIONARY [facility] OBJECT, INITIAL ENCOUNTER 2019-03-09 16:[address] IN UNSP NON-[facility] (PRIVATE) RESIDENCE PLACE 2019-03-09 16:17 ACTIVITY, RUNNING [facility] Medic [facility] 2019-12-03 08:20 MYALGIA, UNSPECIFIED SITE [facility] 2019-12-03 08:20 COUGH [facility] Medic [facility] 2019-12-03 08:20 NASAL CONGESTION [facility] 2019-12-03 08:20 OTHER FATIGUE [facility] Medic [facility] 2019-12-03 08:20 CHILLS (WITHOUT FEVER) [facility] edical [place] 2019-12-03 08:20 CONTACT W AND EXPOSURE TO OTH [facility] VIRAL COMMUNICABLE DISEASES 2019-12-13 13:22 ANXIETY DISORDER, UNSPECIFIED [facility] 2019-12-13 13:22 OBSTRUCTIVE SLEEP APNEA (ADULT) [facility] (PEDIATRIC) 2019-12-13 13:22 RHEUMATOID ARTHRITIS, UNSPECIFIED [facility] 2019-12-13 13:22 OTHER SPONDYLOSIS, THORACIC REGION i [facility] 2019-12-13 13:22 EPIGASTRIC PAIN [facility] Medic [facility] 2019-12-13 13:22 NAUSEA [facility] 2019-12-13 13:22 ANESTHESIA OF SKIN [facility] Medic [facility] Center 2019-12-13 13:22 OTHER PROBLEMS RELATED TO [facility] LIFESTYLE 2019-12-13 13:22 MAJOR DEPRESSIVE DISORDER, SINGLE [facility] EPISODE, UNSPECIFIED 2019-12-13 13:22 OTHER CHRONIC PAIN [facility] Medic al Center 2019-12-13 13:22 [facility]LCER [facility] 2019-12-13 13:22 CONSTIPATION, UNSPECIFIED [facility] 2019-12-13 13:22 ANKYLOSING SPONDYLITIS LUMBAR [facility] REGION 2019-12-13 13:22 ADVERSE EFFECT OF NONSTEROIDAL [facility] ANTI-INFLAMMATORY DRUGS, INIT 2019-12-13 13:[address] IN [place] NON-[facility] (PRIVATE) RESIDENCE PLACE 2019-12-13 13:22 CORRECTION (CURRENT) USE OF OPIATE [facility] ANALGESIC 2019-12-13 13:22 OTHER CORRECTION (CURRENT) DRUG [facility] THERAPY 2019-12-13 13:22 BARIATRIC SURGERY STATUS [facility] 2020-04-22 17:17 ACUTE PHARYNGITIS, UNSPECIFIED [facility] 2020-04-22 17:17 COUGH [facility] Medic al [place] 2020-04-22 17:17 SHORTNESS OF BREATH [facility] cristian [place] 2020-04-22 17:17 NASAL CONGESTION [facility] Medic al [place] 2020-04-22 17:17 OTHER FATIGUE [facility] Medic al [place] 2020-04-22 17:17 CHILLS (WITHOUT FEVER) [facility] edical [place] 2020-04-22 17:17 CONTACT W AND EXPOSURE TO OTH [facility] VIRAL COMMUNICABLE DISEASES Allergies date description facility [facility] [place] CLINDAMYCIN HCL [facility] CODEINE SULFATE [facility] FRUCTOSE [facility] POVIDONE IODINE [facility] Center WARFARIN [facility] [place] NITROFURAN DERIVATIVES [facility] M edical Center PENICILLINS [facility] PENICILLINS [facility] SULFA (SULFONAMIDE ANTIBIOTICS) [facility] NO KNOWN ALLERGIES [facility] LATEX [facility] TR[facility]ADOL [facility] ENOXAPARIN [facility] LISINOPRIL [facility] BACITRACIN-POLYMYXIN B [facility] edical Center [id number] [facility] ADHESIVE TAPE-SILICONES [facility] No Known Drug Allergies [facility] AMLODIPINE BESYLATE [facility] ATORVASTATIN [facility] CODEINE [facility]ULOXETINE [facility] ERYTHROMYCIN [facility] ESCITALOPRAM [facility] LISINOPRIL [facility] LORATADINE [facility] MORPHINE [facility] OXYCODONE [facility] PENTAZOCINE [facility] PREDNISONE [facility] SIMVASTATIN [facility] TRAMADOL [facility] ESCITALOPRAM OXALATE [facility] LIPITOR [facility] PENTAZOCINE LACTATE [facility]ian Center BETA ADRENERGIC BLOCKERS [facility] NSAIDS [facility] PENICILLINS [facility] STATINS [facility] cycline drugs [facility] BACLOFEN [facility] FLUOXETINE [facility] LISINOPRIL [facility] MAPROTILINE [facility] MERCURY (BULK) [facility] METOPROLOL [facility] PHENYLMERCURIC NITRATE [facility] M edical Center ROSUVASTATIN CALCIUM [facility] [id number] REDUCTASE INHIBITORS [facility] VARENICLINE [facility] Center NO KNOWN ALLERGIES [facility] Medic al Center NO ALLERGY INFORMATION AVAILABLE [facility] NSAIDS (NON-STEROIDAL ANTI-INFLAMMATORY DRUG) [facility] SULFA (SULFONAMIDE ANTIBIOTICS) [facility] NO KNOWN ALLERGIES [facility] Medic al [place] BRASSICA OLERACEA [facility] Medic al [place] TRAMADOL [facility] Medic al [place] ENOXAPARIN [facility] Medic al [place] LISINOPRIL [facility] Medic al [place] BACITRACIN-POLYMYXIN B [facility] [id number] [facility] ADHESIVE TAPE-SILICONES [facility] Darvon [facility] Medic al [place] penicillin [facility] Medic [facility] No Known Drug Allergies [facility] Procedures date description facility 2019-12-13 13:22 EXCISION OF ESOPHAGOGASTRIC [facility] JUNCTION, ENDO, DIAGN date description facility 2019-12-13 13:22 REVISION OF EXTRALUMINAL DEVICE IN [facility] STOMACH, PERC APPROACH Results Social History date description facility [id number]
== END 2020-05-15 12:03 | disposition home or self-care (01) ==
LOC: EDUNIT# → SUPCPDRO 04:13 → ED 04:13
DX: F11.23 Opioid dependence with withdrawal (principal); R45.1 Restlessness and agitation; T40.496A Underdosing of other synthetic narcotics, initial encounter; T39.1X6A Underdosing of 4-Aminophenol derivatives, initial encounter; Z91.138 Patient's unintentional underdosing of medication regimen for other reason; Z20.828 Contact with and (suspected) exposure to other viral communicable diseases
CPT/HCPCS: 36415; 70450; 80053; 81003; 83690; 84443; 85025; 87631; 99281; 99284; A9270; 0202U; 80306; 80307; 80320; 80329; 81001; 87086

== ENCOUNTER 2020-07-16 16:33 | Outpatient (CLI) | payer MEDICARE, MEDICAID ==
--- NOTE | 2020-07-17 17:58 | XRAY Report ---
PROCEDURE: Lumbar Spine Complete INDICATIONS: ANKYLOSING SPONDYLITIS TECHNIQUE: 5 views of the lumbar spine were acquired. COMPARISON: CT abdomen and pelvis 12/12/2019. FINDINGS: Bones: 5 [id number] vertebrae are present. There is normal bony alignment. No vertebral body compression fractures. No suspicious bony lesions. Multilevel anterior vertebral body osteophytes. L4-L5 and L5-S1 facet joint hypertrophy. No sclerosis at the SI joints appreciated. Soft tissues: Overlying bowel gas pattern is normal. No suspicious soft tissue calcifications. Aort ic vascular calcifications. Gastric lap band. IMPRESSION: Multilevel mild degenerative change. No compression fracture. Reviewed by: Cuong Marlow MD on 07/16/2020 5:57 PM PST Approved by: Cuong Marlow MD on 07/16/2020 5:57 PM PST Station ID: [id number]
== END 2020-07-16 16:34 | disposition home or self-care (01) ==
LOC: LAB 16:33 → DI 16:34
PROVIDERS: ATTEND Internal Medicine Rheumatology
DX: M25.78 Osteophyte, vertebrae (principal); M45.9 Ankylosing spondylitis of unspecified sites in spine; Z79.899 Other long term (current) drug therapy

== ENCOUNTER 2020-07-16 16:45 | Outpatient (CLI) | payer MEDICARE, MEDICAID ==
--- NOTE | 2020-07-16 17:46 | XRAY Report ---
PROCEDURE: Wrist 4 View LT INDICATIONS: L WRIST PAIN TECHNIQUE: 4 views of the wrist were acquired. COMPARISON: None FINDINGS: Bones: No fractures or dislocations. Osteoarthritic changes are noted along radial aspect of left w rist more prominent at first CMC joint. Well-corticated fragments are noted adjacent to first metacar pal base likely represent old healed injury. No suspicious bony lesions. Scaphoid view: Scaphoid is intact. Soft tissues: No suspicious soft tissue calcifications. IMPRESSION: No acute left wrist fracture or dislocation. 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 Reviewed by: Nam Carpio MD on 07/16/2020 5:45 PM PST Approved by: Nam Carpio MD on 07/16/2020 5:45 PM PST Station ID: [id number]
== END 2020-07-16 16:46 | disposition home or self-care (01) ==
LOC: DI 16:45
PROVIDERS: ATTEND Internal Medicine
DX: M19.032 Primary osteoarthritis, left wrist (principal); M25.78 Osteophyte, vertebrae; M54.9 Dorsalgia, unspecified; Z79.899 Other long term (current) drug therapy

== ENCOUNTER 2020-08-16 11:11 | Outpatient (CLI) | payer MEDICARE, MEDICAID ==
[2020-08-16 11:45] LABS: BASOPHILS # (AUTO) 0.1 10^3/uL (0.0-0.1); BASOPHILS % (AUTO) 0.6 %; EOSINOPHILS # (AUTO) 0.2 10^3/uL (0.0-0.7); EOSINOPHILS % (AUTO) 2.4 %; HGB - HEMOGLOBIN 14.9 g/dL (14.0-18.0); LYMPHOCYTES # (AUTO) 1.7 10^3/uL (1.5-3.5); LYMPHOCYTES % (AUTO) 21.8 %; MEAN CORPUSCULAR HEMOGLOBIN 28.4 pg (27.0-31.0); MEAN CORPUSCULAR HGB CONC 32.4 g/dL (32.0-36.0); MEAN CORPUSCULAR VOLUME 87.6 fL (80.0-94.0); MEAN PLATELET VOLUME 8.8 fL (7.4-11.4); MONOCYTES # (AUTO) 0.6 10^3/uL (0.0-1.0); MONOCYTES % (AUTO) 7.2 %; NEUTROPHILS # (AUTO) 5.4 10^3/uL (1.5-6.6); NEUTROPHILS % (AUTO) 67.6 %; PLT - PLATELET COUNT 245 10^3/uL (130-450); RED BLOOD COUNT 5.25 10^6/uL (4.70-6.10); RED CELL DISTRIBUTION WIDTH 13.7 % (12.0-15.0)
[2020-08-16 11:52] LABS: ALBUMIN 4.5 g/dL (3.2-5.5); ALBUMIN/GLOBULIN RATIO 1.5 (1.0-2.2); ALKALINE PHOSPHATASE 61 IU/L (42-121); ALT ALANINE AMINOTRANSFERASE 12 IU/L (10-60); AST ASPARTATE AMINOTRANSFERASE 16 IU/L (10-42); BILIRUBIN,TOTAL 0.9 mg/dL (0.2-1.0); BUN - BLOOD UREA NITROGEN 13 mg/dL (6-20); CALCIUM 9.6 mg/dL (8.5-10.3); CARBON DIOXIDE - CO2 29 mmol/L (21-32); CHLORIDE 100 mmol/L (101-111); CREATININE 0.9 mg/dL (0.6-1.2); GFR - MDRD 86 (>89); GLUCOSE 97 mg/dL (70-100); POTASSIUM 4.2 mmol/L (3.5-5.0); SODIUM 138 mmol/L (135-145); TOTAL PROTEIN 7.5 g/dL (6.7-8.2)
[2020-08-16 12:19] LABS: CRP - C-REACTIVE PROTEIN < 1.0 mg/dL (0-1.0)
[2020-08-18 13:12] LABS: NIL 0.05 IU/mL
== END 2020-08-16 11:12 | disposition home or self-care (01) ==
LOC: LAB 11:11
PROVIDERS: ATTEND Nurse Practitioner
DX: M45.9 Ankylosing spondylitis of unspecified sites in spine (principal); Z79.899 Other long term (current) drug therapy
CPT/HCPCS: 36415; 80053; 85025; 85651; 86140; 86480

== ENCOUNTER 2021-05-24 15:12 | Outpatient (CLI) | payer MEDICARE ==
--- NOTE | 2021-05-24 18:37 | MRI Report ---
PROCEDURE: Lumbar Spine W/O INDICATIONS: LUMBAR SPONDYLOSIS, ANKYLOSING SPONDYLITIS TECHNIQUE: Noncontrast sagittal T1 spin echo and T2 fast echo, sagittal STIR, axial T1 and T2 fast spin echo thr ough the lumbar spine. In cases with scoliosis, additional coronal T2 fast spin echo may be performe d. COMPARISON: None. FINDINGS: Image quality: Excellent. Alignment and Curvature: There is normal bony alignment. Bones: Mild Modic type II reactive endplate changes noted adjacent to the L4-L5 and L5-S1 discs. No a cute vertebral body compression fractures. Spinal Cord: Conus medullaris terminates at the T12-L1 disc level. Visualized cord demonstrates nor mal signal and size. Paraspinous Soft Tissues: No paravertebral masses. T12-L1: Normal in appearance. L1-L2: Normal in appearance. L2-L3: Slight loss of disc signal. Mild bilateral facet hypertrophy. Mild narrowing of the central canal. Mild bilateral neural foraminal narrowing. No neural compression. L3-L4: Loss of disc signal. Mild, diffuse disc bulge. Moderate bilateral facet hypertrophy. Moderat e narrowing of the central canal. Severe right and moderate left neural foraminal narrowing with comp ression of exiting right L3 nerve root. Fissure noted in the posterior annulus. L4-L5: Loss of disc signal and slight loss of disc height. Mild, diffuse disc bulge. Moderate-sized right central disc protrusion. Right central disc protrusion abuts and compresses the traversing rig ht L5 nerve root. Mild to moderate bilateral facet hypertrophy. Zyuh-ro-uoznzkmo narrowing of the pauly tral canal. Severe right and mild left neural foraminal narrowing with compression of the exiting rig ht L4 nerve root. L5-S1: Loss of disc signal. Mild bilateral facet hypertrophy. Bilateral foraminal disc protrusions. No central stenosis. Severe right and moderate left neural foraminal narrowing with compression of e xiting right L5 nerve root. IMPRESSION: 1. Multilevel degenerative disc disease. 2. Multilevel facet arthropathy. 3. Moderate L3-L4 central canal narrowing. 4. Severe right L3-L4, L4-L5 and L5-S1 neural foraminal narrowing with compression of the exiting rig ht L3, L4, and L5 nerve roots. Reviewed by: Layla Oates MD, PhD on 05/24/2021 5:36 PM AKST Approved by: Layla Oates MD, PhD on 05/24/2021 5:36 PM [facility] Station ID: [id number]
== END 2021-05-24 15:13 | disposition home or self-care (01) ==
LOC: DI 15:12
PROVIDERS: ATTEND Internal Medicine Rheumatology
DX: M45.6 Ankylosing spondylitis lumbar region (principal); M47.816 Spondylosis without myelopathy or radiculopathy, lumbar region; M48.061 Spinal stenosis, lumbar region without neurogenic claudication; M51.36 Other intervertebral disc degeneration, lumbar region; M51.26 Other intervertebral disc displacement, lumbar region

== ENCOUNTER 2021-09-12 08:35 | Outpatient (CLI) | payer MEDICARE ==
[2021-09-12 08:50] LABS: BASOPHILS % (AUTO) 0.6 %; EOSINOPHILS # (AUTO) 0.2 10^3/uL (0.0-0.7); EOSINOPHILS % (AUTO) 2.3 %; HCT - HEMATOCRIT 47.1 % (42.0-52.0); HGB - HEMOGLOBIN 15.7 g/dL (14.0-18.0); LYMPHOCYTES # (AUTO) 1.7 10^3/uL (1.5-3.5); LYMPHOCYTES % (AUTO) 24.8 %; MEAN CORPUSCULAR HEMOGLOBIN 29.8 pg (27.0-31.0); MEAN CORPUSCULAR HGB CONC 33.3 g/dL (32.0-36.0); MEAN CORPUSCULAR VOLUME 89.5 fL (80.0-94.0); MONOCYTES # (AUTO) 0.7 10^3/uL (0.0-1.0); MONOCYTES % (AUTO) 10.1 %; NEUTROPHILS # (AUTO) 4.2 10^3/uL (1.5-6.6); NEUTROPHILS % (AUTO) 61.3 %; PLT - PLATELET COUNT 226 10^3/uL (130-450); RED BLOOD COUNT 5.26 10^6/uL (4.70-6.10); RED CELL DISTRIBUTION WIDTH 13.5 % (12.0-15.0); WHITE BLOOD COUNT 6.9 x10^3/uL (4.8-10.8)
[2021-09-12 09:12] LABS: % IRON SATURATION 25 % (20-50); ALBUMIN 4.7 g/dL (3.2-5.5); ALBUMIN/GLOBULIN RATIO 1.6 (1.0-2.2); ALKALINE PHOSPHATASE 53 IU/L (42-121); ALT ALANINE AMINOTRANSFERASE 17 IU/L (10-60); AST ASPARTATE AMINOTRANSFERASE 20 IU/L (10-42); BILIRUBIN,TOTAL 0.9 mg/dL (0.2-1.0); BUN - BLOOD UREA NITROGEN 11 mg/dL (6-20); CALCIUM 9.7 mg/dL (8.5-10.3); CARBON DIOXIDE - CO2 29 mmol/L (21-32); CHLORIDE 102 mmol/L (101-111); GFR - MDRD 75 (>89); GLUCOSE 101 mg/dL (70-100); IRON 99 ug/dL (45-182); SODIUM 140 mmol/L (135-145); TOTAL IRON BINDING CAPACITY 403 ug/dL (250-450); TOTAL PROTEIN 7.6 g/dL (6.7-8.2); TRANSFERRIN 288 mg/dL (180-329)
[2021-09-12 09:14] LABS: CRP - C-REACTIVE PROTEIN < 1.0 mg/dL (0-1.0)
== END 2021-09-12 08:36 | disposition home or self-care (01) ==
LOC: LAB 08:35
PROVIDERS: ATTEND Nurse Practitioner
DX: M45.9 Ankylosing spondylitis of unspecified sites in spine (principal); Z79.899 Other long term (current) drug therapy; G25.81 Restless legs syndrome
CPT/HCPCS: 36415; 80053; 82728; 83540; 84466; 85025; 85651; 86140